=== PATIENT | female | born 1950 | race Caucasian/White ===

== ENCOUNTER 2019-09-28 08:11 | Day surgery (SDC) | payer MEDICARE, BC ==
[~2019-09-28] VITALS: Ht 165.1 cm; Wt 60.8 kg
[~2019-09-28 08:11] MED LIST: ALEN10 PO; ATOR10 PO; Aspirin EC81 MG PO; CYCL10 PO; EPIN.3I IM; HYDACE5 PO; IBUP800 PO; PRED20 PO; [UNRECOGNIZED DRUG - OTHER]
== END 2019-09-28 10:16 | disposition home or self-care (01) ==
LOC: ORSCSDS 08:11
PROVIDERS: Surgery
PROC: 0DBH8ZX Excision of Cecum, Via Natural or Artificial Opening Endoscopic, Diagnostic (ICD-10-PCS; principal; 2019-09-28 09:30)
DX: Z12.11 Encounter for screening for malignant neoplasm of colon (principal); D12.0 Benign neoplasm of cecum; E78.00 Pure hypercholesterolemia, unspecified; K57.30 Diverticulosis of large intestine without perforation or abscess without bleeding; Z79.82 Long term (current) use of aspirin; Z79.899 Other long term (current) drug therapy
CPT/HCPCS: 88305; J2704; J7120

== ENCOUNTER → 2022-12-11 | Outpatient (CLI) | payer MEDICARE, OTHER | END | disposition home or self-care (01) | LOC: LAB SHORT 12:14 → LAB 12:14 → PLD 12:14 | DX: D48.5 Neoplasm of uncertain behavior of skin (principal) | CPT/HCPCS: 88305 ==

== ENCOUNTER → 2023-08-05 | Outpatient (CLI) | payer MEDICARE | LOC: PLD 11:11 → LAB SHORT 11:11 | DX: C50.912 Malignant neoplasm of unspecified site of left female breast (principal); Z17.0 Estrogen receptor positive status [ER+] | CPT/HCPCS: 88305; 88341; 88342 ==